=== PATIENT | male | born 1945 | race Two or more races ===

== ENCOUNTER 2019-09-10 17:09 | Inpatient (IN) | payer MEDICARE, OTHER ==
[~2019-09-10] VITALS: Ht 182.9 cm; Wt 79.4 kg
[~2019-09-10 17:09] MED LIST: LEVO750T21 PO; LEVO750T46 PO
--- NOTE | 2019-09-10 19:15 | NUR ---
GPS ADMISSION NOTES: ADMITTED THIS 74-Y/O, MALE, FROM [facility], PT. ADMITTED ON 5150 FOR DTS. PER HOLD, PT STATES "I TOOK 20 PILLS OF PERCOCET TO GET RID OF THE PAIN". PT. ALSO STATES HE KNEW IT WAS TOO MANY PILLS BUT "WHAT IS THE POINT OF GOING ON". UPON FACE TO FACE ASSESSMENT, PT. IS A&O X3-4, DEPRESSED MOOD, CALM, COOPERATIVE. AMBULATES INDEPENDENTLY. NO APPARENT DISTRESS NOTED. SKIN ASSESSMENT DONE. PT RIGHTS HANDBOOK & PT. GUIDELINES BOOK GIVEN & DISCUSSED TO THE PATIENT. PT BELONGINGS WERE INVENTORIED & CHECKED FOR CONTRABAND. PT. IS UNDER THE PSYCHIATRIC CARE OF DR. MILLER, ORDERS OBTAINED & UNDER THE MEDICAL CARE OF DR. MCGRAW. MED RECON DONE. PATIENT EDUCATED TO THE USE OF CALL YOUNG. BED ALARM ON. ENVIRONMENTAL SAFETY CHECK DONE. BED LOCKED & IN LOW POSITION. WILL CONTINUE TO MONITOR Q15 MINUTES FOR SAFETY & BEHAVIOR.
[2019-09-10] MEDS ORDERED: MAGNESIUM HYDROXIDE 30 ML UDC PO PRN (20:00)
[2019-09-10] MEDS ORDERED: MAG HYDROX/AL HYDROX/SIMETH 30 ML UDC PO PRN (20:00)
[2019-09-10] MEDS ORDERED: TEMAZEPAM 7.5 MG CAPSULE PO PRN (20:00)
--- NOTE | 2019-09-10 20:30 | NUR ---
GPS RN NOTE, PATIENT NEEDS A MEDICATION RECONCILIATION DUE TO THE FACT HE IS A NEW ADMIT. PAGED [facility] AND INFORMED DR KENTRELL DUKE OF MY FINDINGS. DR KENTRELL DUKE SAID HE WILL DO PATIENT'S MEDICATION RECONCILIATION TONIGHT OR IN THE A.M. WILL CONTINUE TO MONITOR THIS PATIENT WITH THE HELP OF STAFF.
[2019-09-10] MEDS ORDERED: OXYC1TAB8 PO (20:39)
[2019-09-10] MEDS ORDERED: NEBI10TA2 PO (20:40)
[2019-09-10] MEDS ORDERED: OMEP-293 PO (20:40)
[2019-09-10] MEDS ORDERED: MULT-1119 PO (20:41)
[2019-09-10] MEDS ORDERED: LORA-259 PO (20:43)
[2019-09-10] MEDS ORDERED: ESCI20TA PO (20:49)
[2019-09-10] MEDS ORDERED: BUPR-96 PO (20:52)
[2019-09-10] MEDS ORDERED: AMLO5TAB4 PO (20:53)
[2019-09-10] MEDS ORDERED: AMIT25TA52 PO (20:54)
[2019-09-10] MEDS ORDERED: ASPI1TAB2 PO (20:57)
[2019-09-10] MEDS ORDERED: BLOOD SUGAR DIAGNOSTIC 1 EACH STRIP IN ONE (21:00)
[2019-09-10 21:07] VITALS: BP 125/83
[2019-09-10] MEDS: LORAZEPAM 0.5 MG TABLET PO PRN (21:43)
[2019-09-10] MEDS ORDERED: oxyCODONE/APAP (5/325 MG) 1 UDTAB TABLET PO PRN (22:00)
[2019-09-11 06:56] LABS: BASOPHILS % (AUTO) 0.6 % (0.0-2.0); EOSINOPHILS % (AUTO) 1.4 % (0.0-6.0); HEMATOCRIT 32 % (39-51); HEMOGLOBIN 10.9 g/dL (13.5-17.5); LYMPHOCYTES # (AUTO) 1.2 /CMM (0.8-4.8); LYMPHOCYTES % (AUTO) 18.6 % (20.0-44.0); MEAN CORPUSCULAR HGB CONC 34 g/dl (31.0-36.0); MEAN CORPUSCULAR VOLUME 87 fL (80-96); MONOCYTES # (AUTO) 0.7 /CMM (0.1-1.30); MONOCYTES % (AUTO) 10.3 % (2.0-12.0); NEUTROPHILS # (AUTO) 4.5 /CMM (1.8-8.9); NEUTROPHILS % (AUTO) 69.1 % (43.0-81.0); PLATELET COUNT (AUTO) 284 /CMM (150-450); RED BLOOD CELL COUNT(AUTO) 3.74 MIL/uL (4.5-6.0); WHITE BLOOD COUNT (AUTO) 6.5 K/uL (4.3-11.0)
[2019-09-11 07:10] LABS: CALCIUM, SERUM 9.3 mg/dL (8.5-10.1); CREATININE 0.9 mg/dL (0.6-1.3); POTASSIUM 4.2 mmol/L (3.5-5.1)
[2019-09-11 08:00] VITALS: BP 136/76
[2019-09-11] MEDS: LEVOFLOXACIN (750 MG) 750 MG TABLET PO SCH (08:39)
[2019-09-11] MEDS: METOPROLOL TARTRATE 25 MG TABLET PO SCH ×2 (08:40→21:08)
[2019-09-11] MEDS: PANTOPRAZOLE 40 MG TABLET.DR PO SCH (08:40)
[2019-09-11] MEDS: MULTIVITAMINS,THERAGRAN 1 UDTAB TABLET PO SCH (08:40)
[2019-09-11] MEDS: LORAZEPAM 0.5 MG TABLET PO PRN ×2 (08:40→21:08)
[2019-09-11] MEDS: AMLODIPINE BESYLATE 5 MG TABLET PO SCH (08:40)
[2019-09-11] MEDS ORDERED: OMEPRAZOLE 20 MG CAPSULE.DR PO SCH (09:00)
--- NOTE | 2019-09-11 09:08 | NUR ---
PATIENTC/O ANXIETY. PRN ATIVAN GIVEN.
[2019-09-11] MEDS: DULOXETINE HCL 30 MG CAPSULE.DR PO SCH ×2 (13:59→16:29)
[2019-09-11] MEDS: BUPROPION XL 150 MG TAB.ER.24 PO SCH (13:59)
[2019-09-11] MEDS: GABAPENTIN 100 MG CAPSULE PO SCH ×2 (13:59→16:29)
[2019-09-11 16:00] VITALS: BP 104/67
--- NOTE | 2019-09-11 20:34 | NUR ---
RN NOTES SPOKE TO DR. GUZMAN WHO IS COVERING FOR DR. MILLER FOR TONIGHT.. PT. WAS REQUESTING TO CHANGE HIS RESTORIL TO AMBIEN.. DR. GUZMAN ORDER AMBIEN 5 MG PO PRN, ORDER NOTED AND CARRIED OUT
[2019-09-11 20:36] VITALS: BP 137/80
--- NOTE | 2019-09-11 21:10 | NUR ---
RN NOTES PT. IS FEELING ANXIOUS BECAUSE OF HIS NEW ROOM MATE ATIVAN 0.5MG PO GIVEN ORDERED, V/S STABLE
[2019-09-11] MEDS: ZOLPIDEM TARTRATE 5 MG TABLET PO PRN (22:37)
--- NOTE | 2019-09-11 22:41 | NUR ---
RN NOTES PT. ASKED FOR SLEEPING PILL- AMBIEN 5MG PO GIVEN ORDERED, V/S STABLE
[2019-09-12 08:00] VITALS: BP 117/69
[2019-09-12] MEDS: BUPROPION XL 150 MG TAB.ER.24 PO SCH (08:39)
[2019-09-12] MEDS: LEVOFLOXACIN (750 MG) 750 MG TABLET PO SCH (08:39)
[2019-09-12] MEDS: METOPROLOL TARTRATE 25 MG TABLET PO SCH ×2 (08:39→20:04)
[2019-09-12] MEDS: AMLODIPINE BESYLATE 5 MG TABLET PO SCH (08:39)
[2019-09-12] MEDS: GABAPENTIN 100 MG CAPSULE PO SCH ×3 (08:39→17:11)
[2019-09-12] MEDS: MULTIVITAMINS,THERAGRAN 1 UDTAB TABLET PO SCH (08:40)
[2019-09-12] MEDS: PANTOPRAZOLE 40 MG TABLET.DR PO SCH (08:40)
--- NOTE | 2019-09-12 10:15 | NUR ---
Family Contact: SW called the pts daughter, Tish ([phone]), and left a voicemail stating that the SW would like to speak to her regarding the pts initial discharge and treatment plan.
--- NOTE | 2019-09-12 10:20 | NUR ---
Family Contact: SW called the pts girlfriend, Paige ([phone]), and left a voicemail stating that the SW would like to speak to her regarding the pts initial discharge and treatment plan.
[2019-09-12] MEDS: ACETAMINOPHEN 325 MG TABLET PO PRN ×3 (10:25→21:16)
--- NOTE | 2019-09-12 10:25 | NUR ---
Family Contact: SW called the pts son, Rickey ([phone]), and left a voicemail stating that the SW would like to speak to him regarding the pts initial discharge and treatment plan.
--- NOTE | 2019-09-12 10:40 | NUR ---
Family Contact: Pts son, Rickey ([phone]), called the SW back and stated that the plan at this time is to discharge the pt straight to a drug rehab center straight from the hospital since the pt lives at his home alone. He stated that the family is looking into [facility] and the SW stated that she will attempt to assist with this discharge facility.
--- NOTE | 2019-09-12 11:15 | NUR ---
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
--- NOTE | 2019-09-12 11:36 | NUR ---
UR Note: CHEYANNE called the pts [employer] respiratory care specialist, Dequan Vital ([phone]), and left a clinical on his confidential voicemail.
--- NOTE | 2019-09-12 11:52 | NUR ---
Facility Contact: CHEYANNE called [facility] ([phone]) and was informed that there has to be an in person assessment before someone can be admitted to this program and so the pt would have to be discharged from the hospital before this process can start. CHEYANNE stated that she will inform the pts family.
--- NOTE | 2019-09-12 12:08 | NUR ---
Family Contact: Pts daughter, Tish ([phone]), called the SW back and the SW explained the process of the 72 hour to her and then explained to her that the [facility] is not willing to accept a patient until there is a face to face assessment. She stated that the pt needs to be placed somewhere straight from the hospital for safety purposes and therefore agreed for the SW to try [facility].
[2019-09-12] MEDS: DULOXETINE HCL 30 MG CAPSULE.DR PO SCH ×2 (12:18→17:11)
--- NOTE | 2019-09-12 12:28 | NUR ---
Initial Discharge Plan: Pt currently lives alone in his home located at [address] [place] [address]; ([phone]). Per pt and the pts daughter, Tish ([phone]), the pt requires a treatment center. SW will work with the pt and the MD regarding appropriate discharge planning. SW will form a safe and proper discharge.
--- NOTE | 2019-09-12 14:19 | NUR ---
UR Note: [employer] healthcare project manager, Dequan Vital ([phone]), called the SW and stated that the pt is authorized through 09/15 and that the pt will have a review due on 09/16.
[2019-09-12 16:00] VITALS: BP 120/73
[2019-09-12] MEDS: NAPROXEN 250 MG TABLET PO SCH (17:12)
--- NOTE | 2019-09-12 19:44 | NUR ---
GPS/RN NOTE: AWAKE, ALERT, TALKING TO HIS VISITING SON AT THE BEDSIDE. PATIENT PLEASANT, CALM, QUIET, DEPRESSED, COOPERATIVE, MED COMPLIANT. PATIENT IS AMBULATORY, SELF CARE. DENIES SI/HI/ SAFETY PRECAUTION MAINTAINED. ENVIRONMENTAL SAFETY CHECK DONE. WILL CONTINUE TO MONITOR FOR SAFETY AND BEHAVIOR.
[2019-09-12 20:32] VITALS: BP 146/85
--- NOTE | 2019-09-12 21:16 | NUR ---
GPS/RN NOTE: C/O HEADACHE, TYLENOL 650 MG TAB PO GIVEN.
[2019-09-12] MEDS: LORAZEPAM 0.5 MG TABLET PO PRN (21:17)
--- NOTE | 2019-09-12 21:18 | NUR ---
GPS/RN NOTE: FEELING ANXIOUS, LORAZEPAM 0.5 MG TAB PO GIVEN.
[2019-09-12] MEDS: ZOLPIDEM TARTRATE 5 MG TABLET PO PRN (22:17)
--- NOTE | 2019-09-12 22:17 | NUR ---
GPS/RN NOTE: UNABLE TO SLEEP, AMBIEN 5 MG TAB PO GIVEN PER HIS REQUEST.
--- NOTE | 2019-09-13 06:30 | NUR ---
GPS/RN NOTE: SLEPT WELL LAST NIGHT, SLEPT FOR 8 HRS. FEELING BETTER, HEADACHE RELIEVED AFTER THE TYLENOL LAST NIGHT. WILL CONTINUE TO MONITOR.
[2019-09-13 08:00] VITALS: BP 135/76
[2019-09-13] MEDS: BUPROPION XL 150 MG TAB.ER.24 PO SCH (08:32)
[2019-09-13] MEDS: GABAPENTIN 100 MG CAPSULE PO SCH ×3 (08:32→16:54)
[2019-09-13] MEDS: MULTIVITAMINS,THERAGRAN 1 UDTAB TABLET PO SCH (08:32)
[2019-09-13] MEDS: LEVOFLOXACIN (750 MG) 750 MG TABLET PO SCH (08:32)
[2019-09-13] MEDS: AMLODIPINE BESYLATE 5 MG TABLET PO SCH (08:32)
[2019-09-13] MEDS: METOPROLOL TARTRATE 25 MG TABLET PO SCH ×2 (08:33→21:38)
[2019-09-13] MEDS: NAPROXEN 250 MG TABLET PO SCH ×2 (08:33→16:54)
[2019-09-13] MEDS: PANTOPRAZOLE 40 MG TABLET.DR PO SCH (08:33)
[2019-09-13] MEDS: ACETAMINOPHEN 325 MG TABLET PO PRN ×2 (10:08→16:54)
[2019-09-13] MEDS: LORAZEPAM 0.5 MG TABLET PO PRN ×2 (10:08→20:18)
[2019-09-13] MEDS: DULOXETINE HCL 30 MG CAPSULE.DR PO SCH ×2 (12:31→16:54)
--- NOTE | 2019-09-13 15:01 | NUR ---
Family Contact: Pts girlfriendPaige ([phone]), called the SW and asked for an update regarding the pts discharge plan and the SW stated that the pt was being sent a referral to [facility].
--- NOTE | 2019-09-13 15:10 | NUR ---
Treatment Center Referral: CHEYANNE faxed a referral to [facility] to the fax number: [phone].
[2019-09-13 16:00] VITALS: BP 112/66
--- NOTE | 2019-09-13 19:30 | NUR ---
GPS RN NOTE, RECEIVED PATIENT AWAKE AND IN BED, NO S/S OR COMPLAINTS OF PAIN AT THIS TIME. PATIENT IS DISPLAYING NO S/S OF APPARENT DISTRESS AT THIS TIME. PATIENT BREATHING IS UNLABORED WITH EQUAL RISE AND FALL OF THE CHEST. PATIENT IS ALERT AND ORIENTED X 2-3 ON ROOM AIR WITH A SPO2 97%. PATIENT IS COMPLIANT WITH MEDICATIONS, DEPRESSED, ANXIOUS AT TIMES, AND COOPERATIVE. PATIENT DENIES SUICIDAL AND HOMICIDAL IDEATIONS AT THIS TIME. PATIENT ASSISTED WITH TURNING AND REPOSITIONING Q2HR AND PRN FOR COMFORT AND CIRCULATION. PATIENT HAS NO NEEDS AT THIS TIME. PATIENT EDUCATED ON THE USE OF THE CALL YOUNG. PATIENT BED SIDE RAILS UP X 2 FOR SAFETY. PATIENT BED IS LOCKED, LOW, WITH BED ALARM ON. WILL CONTINUE TO MONITOR THIS PATIENT Q15 MINUTES WITH THE HELP OF STAFF TO MAINTAIN SAFETY.
[2019-09-13 19:58] VITALS: BP 121/64
--- NOTE | 2019-09-13 20:18 | NUR ---
GPS RN NOTE, PATIENT HAS A COMPLAINT OF FEELING ANXIOUS AND IS REQUESTING ATIVAN AT THIS TIME. PATIENT VITAL SIGNS ARE STABLE. GAVE ATIVAN 0.5 MG PO Q6HR PRN ORDERED. WILL REASSESS FOR ANXIETY AND I WILL CONTINUE TO MONITOR THIS PATIENT.
--- NOTE | 2019-09-14 01:54 | NUR ---
GPS RN NOTE, PATIENT HAS A COMPLAINT OF NOT BEING ABLE TO SLEEP AND IS REQUESTING AMBIEN AT THIS TIME. PATIENT VITAL SIGNS ARE STABLE. GAVE AMBIEN 5MG PO HS PRN ORDERED. WILL REASSESS FOR INSOMNIA AND I WILL CONTINUE TO MONITOR THIS PATIENT.
[2019-09-14] MEDS: ZOLPIDEM TARTRATE 5 MG TABLET PO PRN (01:55)
[2019-09-14] MEDS: ACETAMINOPHEN 325 MG TABLET PO PRN ×2 (01:55→21:05)
--- NOTE | 2019-09-14 01:55 | NUR ---
GPS RN NOTE, PATIENT HAS A COMPLAINT OF LOWER BACK PAIN AT 2 OUT 10 ON THE PAIN SCALE AND IS REQUESTING TYLENOL AT THIS TIME. PATIENT VITAL SIGNS ARE STABLE. GAVE TYLENOL 650MG PO Q6HR PRN ORDERED. WILL REASSESS PAIN AND I WILL CONTINUE TO MONITOR THIS PATIENT.
[2019-09-14 08:00] VITALS: BP 140/68
[2019-09-14] MEDS: GABAPENTIN 100 MG CAPSULE PO SCH ×3 (08:17→16:41)
[2019-09-14] MEDS: MULTIVITAMINS,THERAGRAN 1 UDTAB TABLET PO SCH (08:17)
[2019-09-14] MEDS: BUPROPION XL 150 MG TAB.ER.24 PO SCH (08:17)
[2019-09-14] MEDS: AMLODIPINE BESYLATE 5 MG TABLET PO SCH (08:17)
[2019-09-14] MEDS: LEVOFLOXACIN (750 MG) 750 MG TABLET PO SCH (08:17)
[2019-09-14] MEDS: METOPROLOL TARTRATE 25 MG TABLET PO SCH ×2 (08:18→21:05)
[2019-09-14] MEDS: NAPROXEN 250 MG TABLET PO SCH ×2 (08:18→16:41)
[2019-09-14] MEDS: PANTOPRAZOLE 40 MG TABLET.DR PO SCH (08:19)
[2019-09-14] MEDS: ASPIRIN/ACETAMINOPHEN/CAFFEINE 1 EACH TABLET PO PRN (10:51)
[2019-09-14] MEDS: DULOXETINE HCL 30 MG CAPSULE.DR PO SCH ×2 (12:27→16:41)
[2019-09-14 16:00] VITALS: BP 117/67
[2019-09-14 20:47] VITALS: BP 137/72
[2019-09-14] MEDS: LORAZEPAM 0.5 MG TABLET PO PRN (21:05)
[2019-09-15] MEDS: ASPIRIN/ACETAMINOPHEN/CAFFEINE 1 EACH TABLET PO PRN ×2 (06:00→11:37)
[2019-09-15] MEDS: BUPROPION XL 150 MG TAB.ER.24 PO SCH (08:19)
[2019-09-15] MEDS: MULTIVITAMINS,THERAGRAN 1 UDTAB TABLET PO SCH (08:19)
[2019-09-15] MEDS: PANTOPRAZOLE 40 MG TABLET.DR PO SCH (08:19)
[2019-09-15] MEDS: GABAPENTIN 100 MG CAPSULE PO SCH ×3 (08:19→16:19)
[2019-09-15] MEDS: AMLODIPINE BESYLATE 5 MG TABLET PO SCH (08:20)
[2019-09-15] MEDS: NAPROXEN 250 MG TABLET PO SCH ×2 (08:20→16:19)
[2019-09-15] MEDS: METOPROLOL TARTRATE 25 MG TABLET PO SCH ×2 (08:20→20:27)
[2019-09-15 10:01] VITALS: BP 133/72
[2019-09-15] MEDS: LORAZEPAM 0.5 MG TABLET PO PRN ×2 (11:37→18:23)
[2019-09-15] MEDS: DULOXETINE HCL 30 MG CAPSULE.DR PO SCH ×2 (12:09→16:19)
[2019-09-15] MEDS: ACETAMINOPHEN 325 MG TABLET PO PRN (18:24)
[2019-09-15 20:37] VITALS: BP 125/62
[2019-09-16] MEDS: LORAZEPAM 0.5 MG TABLET PO PRN ×3 (00:24→14:54)
[2019-09-16] MEDS: ACETAMINOPHEN 325 MG TABLET PO PRN ×2 (02:47→15:05)
[2019-09-16 08:00] VITALS: BP 134/74
[2019-09-16 08:38] VITALS: BP 134/74
[2019-09-16] MEDS: AMLODIPINE BESYLATE 5 MG TABLET PO SCH (08:38)
[2019-09-16] MEDS: BUPROPION XL 150 MG TAB.ER.24 PO SCH (08:38)
[2019-09-16] MEDS: GABAPENTIN 100 MG CAPSULE PO SCH ×2 (08:38→12:37)
[2019-09-16] MEDS: PANTOPRAZOLE 40 MG TABLET.DR PO SCH (08:38)
[2019-09-16] MEDS: NAPROXEN 250 MG TABLET PO SCH (08:38)
[2019-09-16] MEDS: ASPIRIN/ACETAMINOPHEN/CAFFEINE 1 EACH TABLET PO PRN (08:38)
[2019-09-16] MEDS: METOPROLOL TARTRATE 25 MG TABLET PO SCH (08:38)
[2019-09-16] MEDS: MULTIVITAMINS,THERAGRAN 1 UDTAB TABLET PO SCH (08:38)
--- NOTE | 2019-09-16 09:00 | NUR ---
PATIENT C/O ANXIETY AND HEADACHE. PRN ATIVAN AND TYLENOL GIVEN.
--- NOTE | 2019-09-16 09:03 | NUR ---
Treatment Center Contact: CHEYANNE called [facility] ([phone]) and spoke to Liza who stated that the fax did not go to the appropriate department. She asked the CHEYANNE to send the referral to [phone].
--- NOTE | 2019-09-16 10:13 | NUR ---
Family Contact: SW called the pts girlfriend, Paige ([phone]), and left a voicemail informing her that she received all the voicemails that she had left regarding the pts case. SW stated that she will call her back if she does not receive a call from her.
--- NOTE | 2019-09-16 10:15 | NUR ---
Family Contact: CHEYANNE called the pts daughter, Tish ([phone]), and informed her that the pts insurance company may not authorize additional days for the pts inpatient stay. CHEYANNE also stated that she is working with [facility] regarding the pts care and informed her that most likely the pt will receive authorization for a partial program and not inpatient. CHEYANNE stated that she will keep her informed.
--- NOTE | 2019-09-16 10:15 | NUR ---
UR Note: CHEYANNE called the pts [employer] wound care specialist, Dequan Vital ([phone]), and left a clinical on his confidential voicemail.
--- NOTE | 2019-09-16 10:17 | NUR ---
Individual Intervention with the pt: CHEYANNE met with the pt and informed him that the insurance company may not authorize additional time for him to be here in the hospital. CHEYANNE stated that the pt will most likely be accepted to an outpatient program and he stated that he will do whatever is best.
--- NOTE | 2019-09-16 10:23 | NUR ---
Family Contact: CHEYANNE called the pts girlfriend, Paige ([phone]), and informed her that she will inform her about any updates from the insurance company, his discharge and his placement in a program. CHEYANNE stated that she left a voicemail for the insurance licensing supervisor and that she is in contact with Amrik.
[2019-09-16] MEDS: DULOXETINE HCL 30 MG CAPSULE.DR PO SCH (12:37)
--- NOTE | 2019-09-16 13:20 | NUR ---
Treatment Center Contact: Teddy ([phone]) from [facility] stated that the pt was accepted to their facility and has an inpatient bed that is ready for today.
--- NOTE | 2019-09-16 13:30 | NUR ---
Family Contact: SW called the pts girlfriend, Paige ([phone]), and was unable to leave a message on her voicemail.
--- NOTE | 2019-09-16 13:30 | NUR ---
Family Contact: CHEYANNE called the pts daughter, Tish ([phone]), and informed her that the pt was accepted to [facility] and has an inpatient bed. CHEYANNE stated that she is going to arrange this discharge as soon as possible.
--- NOTE | 2019-09-16 14:10 | NUR ---
Treatment Center Referral: CHEYANNE faxed a referral to [facility] with attn to Latosha to the fax number: [phone].
--- NOTE | 2019-09-16 14:22 | NUR ---
Family Contact: CHEYANNE called the pts girlfriend, Paige ([phone]), and informed her of the pts discharge. She stated that she will pick up and delivery driver the pt and take him to the treatment center. She appeared to be upset that there was no guarantee of how long the pt would be able to remain at the treatment center.
--- NOTE | 2019-09-16 14:29 | NUR ---
Individual Intervention with the pt: SW met with the pt and informed him that the pt was accepted to [facility] and the pt stated that he wanted to attend the program in [place]. Pt stated that he does not know anything about the [place] program and the SW stated that there was a lot of effort to find him an inpatient bed and he should give the program a chance if he is focused on his recovery. SW encouraged him to go to the program and ask questions so that he can know more about it if he has that concern.
--- NOTE | 2019-09-16 15:01 | NUR ---
PATIENT C/O ANXIETY/PAIN. PRN ATIVAN AND TYLENOL GIVEN
--- NOTE | 2019-09-16 16:13 | NUR ---
Discharge Note: Pt was discharged to [facility] [place] [address] [place] [address]; . Pts daughter, Tish ([phone]), was informed of the discharge. Pt was discharged at 3:30pm and was picked up by his girlfriend, Paige ([phone]). Upon discharge, the pt appeared to be in a euthymic mood and presented with an agitated affect. Pt denied both suicidal and homicidal ideation as well as auditory and visual hallucinations. Pt was provided with three substance abuse referrals that are listed below. Pt will be under the care of his psychiatrist, Dr. Mayo Henry, located at [address] [place] [address]; and hip hop artist, Dr. Vizcaino, located at [address] [place] [address] [address] [address]; . Substance Abuse Referrals: [facility] [address] [place] [address] Tel. [facility] [address] [place] Provider Mental Health Treatment Tele-dermatology HIV Services Telemedicine Services [place] [facility] [address] [place] [address] [facility] [address] [place] [address]
--- NOTE | 2019-09-16 16:28 | NUR ---
MOBILE LOUNGE DRIVER OR OPERATOR NOTE: PATIENT IS A 74 YEAR OLD MALE DISCHARGED TO [facility] [address] [id number] . PATIENT IS IN STABLE CONDITION. VSS. NO ACUTE DISTRESS NOTED. NO COMPLAINTS. COMPLIANT WITH MEDICATION MANAGEMENT. COOPERATIVE WITH PLAN OF CARE. PSYCHIATRIC TREATMENT PLANS MET. MEDICAL TREATMENT PLANS DEFERRED FOR CONTINUAL MONITORING. DENIES SI/HI VAH AT THE TIME OF DISCHARGE. SKIN INTACT. EDUCATED PATIENT ABOUT AFTERCARE WITH COPY PROVIDED. RETURNED PERSONAL BELONGINGS TO PATIENT. MEDICATIONS RECONCILED WITH DR MILLER AND DR GUO ALONG WITH PSYCHIATRIC DISCHARGE ORDERS. DISCHARGE PAPERWORK SIGNED. FOR FOLLOW UP WITH PSYCHIATRIST DR CARMELA CESPEDES [address] [address] [place] [address] IN 1 WEEK. PATIENT LEFT THE [facility] VIA PRIVATE TRANSPORT.
== END 2019-09-16 15:45 | DRG 885 ==
LOC: GPS 19:03
PROVIDERS: ADMIT Psychiatry & Neurology Psychosomatic Medicine; ATTEND Internal Medicine
DX: F33.3 Major depressive disorder, recurrent, severe with psychotic symptoms (principal); R45.851 Suicidal ideations; F41.9 Anxiety disorder, unspecified; G89.29 Other chronic pain; I10 Essential (primary) hypertension; G62.9 Polyneuropathy, unspecified; F19.90 Other psychoactive substance use, unspecified, uncomplicated; M54.16 Radiculopathy, lumbar region
CPT/HCPCS: 36415; 80048-TC; 80061-TC; 82962-TC; 85025-TC; 87081-TC; 92521